=== PATIENT | male | born 1975 | race Caucasian/White ===

== ENCOUNTER 2016-09-02 01:22 | Emergency (ER) | payer OTHER ==
[~2016-09-02] VITALS: Ht 175.3 cm; Wt 101.0 kg
[2016-09-02] MEDS ORDERED: MEDROL DOSEPAK4 MG PO (02:53)
[2016-09-02] MEDS ORDERED: LIDODERM 5% P1 PATCH TD (02:53)
[2016-09-02] MEDS ORDERED: NORCO 5/3251 TABLET PO (02:53)
[2016-09-02 04:52] VITALS: BP 128/78
== END 2016-09-02 04:55 | disposition home or self-care (01) ==
LOC: EME 01:22
DX: S39.012A Strain of muscle, fascia and tendon of lower back, initial encounter (principal); X50.0XXA Overexertion from strenuous movement or load, initial encounter; Y99.0 Civilian activity done for income or pay; M47.895 Other spondylosis, thoracolumbar region
CPT/HCPCS: 72100; 99281; 99283; J7512